=== PATIENT | male | born 1985 | race Caucasian/White ===

== ENCOUNTER 2023-01-11 15:44 | Emergency (ER) | payer MEDICAID ==
[~2023-01-11] VITALS: Ht 177.8 cm; Wt 68.0 kg
--- NOTE | 2023-01-11 17:50 | NUR ---
BIB FRIEND C/O LFA LACERATION WHILE CUTTING TILES, STATES UTD W TDAP.
[2023-01-11] MEDS ORDERED: LIDOCAINE 1%-EPI 1:100,000 20 ML VIAL ONE (19:50)
[2023-01-11] MEDS ORDERED: IBUP-1953 PO (20:59)
--- NOTE | 2023-01-11 21:14 | NUR ---
SUTURING DONE BY DR GOODE UNDER LOCAL ANESTHESIA
--- NOTE | 2023-01-11 21:15 | NUR ---
Patient discharged to home in stable condition. Written and verbal after care instructions given. Patient verbalizes understanding of instruction.
[2023-01-11 21:47] VITALS: BP 110/79
== END 2023-01-11 21:15 | disposition home or self-care (01) ==
LOC: ER 15:54
DX: S51.812A Laceration without foreign body of left forearm, initial encounter (principal); W29.8XXA Contact with other powered hand tools and household machinery, initial encounter; Y93.89 Activity, other specified; Y92.89 Other specified places as the place of occurrence of the external cause; Y99.8 Other external cause status
CPT/HCPCS: 99282; 12004; A6403 ×2; J3490